=== PATIENT | female | born 1950 | race Caucasian/White ===

== ENCOUNTER → 2017-12-28 | Outpatient (CLI) | payer MEDICARE ==
[~2017-12-28] MED LIST: ASCO100019 PO; ASPI-621 PO; BIOT25005 PO; CALC-192 PO; CELE200C PO; CETI-158 PO; CETI10TA18 PO; CHOL200024 PO; CRAN300T PO; DEXL60CA2 PO; ESTR0.45 PO; ESTR0.5T PO; FLAX100016 PO; GABA600T2 PO; GLUC1TAB27 PO; HYDR-3237 PO; LEVO100T PO; LEVO112T4 PO; MAGNESIUM PO; MONT10TA6 PO; Magnesium PO; NAPR220C PO; OLME1TAB22 PO; OMEG1CAP23 PO; OMEG1CAP39 PO; ONDA4TAB10 PO; PANT40TA5 PO; PREMERIN; RED600TA PO; VITA150T PO
[2017-12-28 10:45] LABS: ALANINE AMINOTRANSFERASE 29 U/L (12-78); ALBUMIN 3.4 g/dL (3.4-5.0); ANION GAP 4 mmol/L (5-15); CALCIUM 9.3 mg/dL (8.5-10.1); CHLORIDE 107 mmol/L (98-107)
[2017-12-28 10:47] LABS: ALKALINE PHOSPHATASE 90 U/L (45-117); BILIRUBIN,TOTAL 0.3 mg/dL (0.2-1.0); TOTAL PROTEIN 6.9 g/dL (6.4-8.2)
== END | disposition home or self-care (01) ==
LOC: STAR 09:39
PROVIDERS: ATTEND Surgery
DX: Z01.818 Encounter for other preprocedural examination (principal); R92.0 Mammographic microcalcification found on diagnostic imaging of breast; Z88.0 Allergy status to penicillin; Z88.1 Allergy status to other antibiotic agents
CPT/HCPCS: 36415; 80053; 93005

== ENCOUNTER 2018-01-07 10:19 | Day surgery (SDC) | payer MEDICARE ==
[~2018-01-07] VITALS: Ht 162.6 cm; Wt 92.0 kg
[~2018-01-07 10:19] MED LIST changes: +BUPIVACAINE/PF-EPI 0.5% 1:200K ONE
[2018-01-07] MEDS ORDERED: LACTATED RINGERS 1,000 ML IV SCH (12:22)
[2018-01-07 12:23] VITALS: BP 162/75
[2018-01-07] MEDS ORDERED: ISOSULFAN BLUE 10 MG/ML, 5ML IV ONE (14:00)
[2018-01-07] MEDS ORDERED: MIDAZOLAM 1 MG/ML, 2ML ONE (14:10)
[2018-01-07] MEDS ORDERED: FENTANYL PF 100 MCG/2ML ONE (14:10)
[2018-01-07] MEDS ORDERED: CLINDAMYCIN 150 MG/ML, 6ML ONE (14:13)
[2018-01-07] MEDS ORDERED: PROPOFOL 10 MG/ML, 20ML ONE (14:18)
[2018-01-07] MEDS ORDERED: ONDANSETRON 2MG/ML, 2ML ONE (14:18)
[2018-01-07] MEDS ORDERED: DEXAMETHASONE 4 MG/ML, 1ML ONE (14:18)
[2018-01-07] MEDS ORDERED: EPHEDRINE 50 MG/ML, 1ML ONE (14:18)
[2018-01-07] MEDS ORDERED: LIDOCAINE 1%-EPI 1:100K, 30ML ONE (14:22)
[2018-01-07] MEDS ORDERED: SODIUM BICARBONATE 4.0%, 5ML ONE (14:22)
[2018-01-07] MEDS ORDERED: LIDOCAINE 1%, 20ML ONE (14:22)
[2018-01-07] MEDS ORDERED: KETOROLAC 30 MG/1 ML IV PRN (15:00)
[2018-01-07] MEDS ORDERED: hydrALAzine 20 MG/ML, 1ML IV PRN (15:00)
[2018-01-07] MEDS ORDERED: HYDROmorphone 1 MG/ML, 1ML IV PRN (15:00)
[2018-01-07] MEDS ORDERED: ALBUTEROL SULFATE 2.5 MG/3 ML NPPB PRN (15:00)
[2018-01-07] MEDS ORDERED: LABETALOL 5MG/ML, 20ML IV PRN (15:00)
[2018-01-07] MEDS ORDERED: FENTANYL PF 100 MCG/2ML IV PRN (15:00)
[2018-01-07] MEDS ORDERED: OXYcodone 5 MG/5 ML ORAL.SOL UDC PO PRN (15:00)
[2018-01-07] MEDS ORDERED: PROMETHAZINE 25 MG/ML, 1ML IV PRN (15:00)
[2018-01-07] MEDS ORDERED: ACETAMINOPHEN 325 MG TABLET PO PRN (15:00)
[2018-01-07] MEDS ORDERED: LORazepam 2 MG/ML, 1ML IVPush PRN (15:00)
[2018-01-07] MEDS ORDERED: OXYcodone 5 MG/5 ML ORAL.SOL UDC ONE (15:30)
[2018-01-07] MEDS ORDERED: ACETAMINOPHEN 650 MG/20.3 ML UDC ONE (15:30)
== END 2018-01-07 17:00 | disposition home or self-care (01) ==
LOC: CFH 10:19 → OUT 17:00
PROVIDERS: ATTEND Surgery
DX: R92.0 Mammographic microcalcification found on diagnostic imaging of breast (principal); I10 Essential (primary) hypertension; Z88.1 Allergy status to other antibiotic agents; Z88.0 Allergy status to penicillin; Z79.82 Long term (current) use of aspirin; Z79.899 Other long term (current) drug therapy; Z98.890 Other specified postprocedural states; Z90.710 Acquired absence of both cervix and uterus; Z87.891 Personal history of nicotine dependence
CPT/HCPCS: 19125; 19281; 76098; J2250; J3010; J3490; J7120; 88307; J1100; J2405; J2704